=== PATIENT | male | born 1965 | race Caucasian/White ===

== ENCOUNTER 2018-03-22 00:55 | Emergency (ER) | payer OTHER ==
[2018-03-22] MEDS ORDERED: Bupivacaine PF 0.5% 30 ML VIAL ONE (01:48)
[2018-03-22] MEDS ORDERED: Penicillin V Potassium 250 MG TAB ONE (02:04)
== END 2018-03-22 02:15 | disposition home or self-care (01) ==
LOC: MADERS 00:55
DX: K08.89 Other specified disorders of teeth and supporting structures (principal); E78.5 Hyperlipidemia, unspecified; I10 Essential (primary) hypertension; Z79.899 Other long term (current) drug therapy
CPT/HCPCS: 64400; S0020